=== PATIENT | female | born 1975 | race Caucasian/White ===

== ENCOUNTER 2016-10-03 16:32 | Outpatient (CLI) | payer OTHER ==
[2016-10-03] MEDS ORDERED: AMOX/CLAV 875 MG/125 MG TABLET PO SCH (18:00)
[2016-10-03] MEDS ORDERED: TERBUTALINE 1 MG/ML VIAL SUBQ ONE (18:14)
[2016-10-03] MEDS ORDERED: ONDANSETRON 4 MG/2 ML VIAL IVP PRN (18:21)
[2016-10-03] MEDS: TERBUTALINE 1 MG/ML VIAL SUBQ ONE ×2 (18:44→19:11)
[2016-10-03] MEDS ORDERED: LACTATED RINGERS 1,000 ML IV SCH (19:00)
[2016-10-03] MEDS ORDERED: AMPICILLIN 2 GM in SODIUM CHLORIDE 0.9% MINIBAG 100 ML IV SCH (20:10)
== END 2016-10-03 21:35 | disposition home or self-care (01) ==
DX: O98.813 Other maternal infectious and parasitic diseases complicating pregnancy, third trimester (principal); J06.9 Acute upper respiratory infection, unspecified; O26.893 Other specified pregnancy related conditions, third trimester; R11.0 Nausea; Z3A.39 39 weeks gestation of pregnancy
CPT/HCPCS: 81003; 96372; 96374; 99213; J7120

== ENCOUNTER 2016-10-05 15:02 | Inpatient (IN) | payer OTHER ==
[2016-10-05] MEDS ORDERED: ONDANSETRON 4 MG/2 ML VIAL IVP PRN ×2 (15:13→16:22)
[2016-10-05] MEDS ORDERED: fentaNYL 100 MCG/2 ML VIAL IVP PRN (15:13)
[2016-10-05] MEDS: LACTATED RINGERS 1,000 ML IV SCH ×2 (15:25→16:00)
[2016-10-05] MEDS ORDERED: fentaNYL 100 MCG/2 ML VIAL ONE (15:38)
[2016-10-05] MEDS ORDERED: SUFENTA/BUPIV 0.4 MCG/0.0625% 150 ML EP ONE (15:39)
[2016-10-05] MEDS ORDERED: SUFENTA/BUPIV 0.4 MCG/0.0625% EPIDURAL 150 ML EP PRN (16:22)
[2016-10-05] MEDS ORDERED: NALBUPHINE 20 MG/ML AMP IVP PRN (16:22)
[2016-10-05] MEDS ORDERED: LACTATED RINGERS 500 ML IV ONE (16:22)
[2016-10-05] MEDS ORDERED: METOCLOPRAMIDE 10 MG/2 ML VIAL IVP PRN (16:22)
[2016-10-05] MEDS ORDERED: NALOXONE 0.4 MG/ML VIAL IVP PRN (16:22)
[2016-10-05] MEDS ORDERED: diphenhydrAMINE INJ 50 MG/ML VIAL IVP PRN (16:22)
[2016-10-05] MEDS ORDERED: ePHEDrine 50 MG/ML AMP IVP PRN (16:22)
[2016-10-05] MEDS ORDERED: fentaNYL 100 MCG/2 ML VIAL IVP ONE (16:30)
[2016-10-05] MEDS ORDERED: ROPIVACAINE 0.2% PF 10 ML VIAL EPI ONE (16:30)
[2016-10-05] MEDS ORDERED: OXYTOCIN/LACTATED RINGERS 250 ML IV ONE (16:30)
[2016-10-05] MEDS ORDERED: LIDOCAINE 1% 50 ML MDV ONE (16:35)
[2016-10-05] MEDS ORDERED: ACETAMINOPHEN 325 MG TABLET PO PRN (17:12)
[2016-10-05] MEDS ORDERED: HYDROCORTISONE/PRAMOXINE 10 GM PR PRN (17:12)
[2016-10-05] MEDS ORDERED: WITCH HAZEL/GLYCERIN 1 EACH MED..PAD TOP PRN (17:12)
[2016-10-05] MEDS: IBUPROFEN 800 MG TABLET PO SCH ×2 (17:44→23:43)
[2016-10-05] MEDS ORDERED: LACTATED RINGERS 1,000 ML IV SCH (18:00)
[2016-10-05] MEDS ORDERED: BUDESONIDE 0.5 MG/2 ML NEB INH SCH (19:00)
[2016-10-05] MEDS: DOCUSATE SODIUM 100 MG CAPSULE PO SCH (21:12)
[2016-10-06] MEDS: FORMOTEROL FUMARATE NEB 20 MCG/2 ML INH SCH ×3 (00:48→17:52)
[2016-10-06] MEDS: IBUPROFEN 800 MG TABLET PO SCH ×3 (06:05→19:37)
[2016-10-06] MEDS: DOCUSATE SODIUM 100 MG CAPSULE PO SCH ×2 (08:45→20:57)
[2016-10-06] MEDS: oxyCODONE 5 MG TABLET PO PRN ×3 (13:51→21:56)
[2016-10-06] MEDS ORDERED: ACETAMINOPHEN 325 MG TABLET PO SCH (14:00)
[2016-10-06] MEDS ORDERED: ACETAMINOPHEN 500 MG TABLET PO PRN (14:17)
[2016-10-06] MEDS: SIMETHICONE CHEW 80 MG TABLET PO SCH ×2 (14:24→14:25)
[2016-10-06] MEDS ORDERED: BUDESONIDE 0.5 MG/2 ML NEB INH SCH (14:39)
[2016-10-06] MEDS: BUDESONIDE 0.5 MG/2 ML NEB INH SCH ×2 (17:52→17:54)
[2016-10-06] MEDS: ACETAMINOPHEN 500 MG TABLET PO SCH (18:15)
[2016-10-07] MEDS: IBUPROFEN 800 MG TABLET PO SCH ×2 (04:39→10:30)
[2016-10-07] MEDS: ACETAMINOPHEN 500 MG TABLET PO SCH (04:40)
[2016-10-07] MEDS: oxyCODONE 5 MG TABLET PO PRN ×3 (05:44→14:07)
[2016-10-07] MEDS: DOCUSATE SODIUM 100 MG CAPSULE PO SCH (10:29)
[2016-10-07] MEDS: FORMOTEROL FUMARATE NEB 20 MCG/2 ML INH SCH (10:45)
[2016-10-07] MEDS: BUDESONIDE 0.5 MG/2 ML NEB INH SCH (10:45)
== END 2016-10-07 14:15 | disposition home or self-care (01) | DRG 775 ==
PROC: 0KQM0ZZ Repair Perineum Muscle, Open Approach (ICD-10-PCS; principal; 2016-10-05)
PROC: 10E0XZZ Delivery of Products of Conception, External Approach (ICD-10-PCS; principal; 2016-10-05)
DX: O99.214 Obesity complicating childbirth (principal); Z68.39 Body mass index [BMI] 39.0-39.9, adult; O99.52 Diseases of the respiratory system complicating childbirth; J45.909 Unspecified asthma, uncomplicated; O70.1 Second degree perineal laceration during delivery; Z3A.39 39 weeks gestation of pregnancy; Z37.0 Single live birth

== ENCOUNTER 2016-10-26 15:28 | Outpatient (CLI) | payer OTHER | END 2016-10-26 15:29 | disposition home or self-care (01) | DX: O10.43 Pre-existing secondary hypertension complicating the puerperium (principal) ==

== ENCOUNTER 2017-12-03 17:00 | Outpatient (CLI) | payer MEDICAID, OTHER ==
[2017-12-03 12:48] LABS: HGB - HEMOGLOBIN 12.9 g/dL (12.0-16.0); MEAN CORPUSCULAR HEMOGLOBIN 28.1 pg (27.0-31.0); MEAN CORPUSCULAR HGB CONC 33.4 g/dL (32.0-36.0); MEAN CORPUSCULAR VOLUME 83.9 fL (81.0-99.0); MEAN PLATELET VOLUME 8.5 fL (7.9-10.8); RED BLOOD COUNT 4.6 10^6/uL (4.20-5.40); RED CELL DISTRIBUTION WIDTH 14.6 % (12.0-15.0); WHITE BLOOD COUNT 6.9 x10^3/uL (4.8-10.8)
[2017-12-03 13:17] LABS: THYROID STIMULATING HORMONE 1.6 uIU/mL (0.34-5.60)
[2017-12-03 13:19] LABS: FREE T4 (FREE THYROXINE) 0.86 ng/dL (0.58-1.64)
== END 2017-12-03 17:01 | disposition home or self-care (01) ==
LOC: LAB.N 17:00
PROVIDERS: ATTEND Obstetrics & Gynecology
DX: R53.81 Other malaise (principal)
CPT/HCPCS: 36415; 84439; 84443; 84481

== ENCOUNTER 2017-12-10 15:25 | Outpatient (CLI) | payer OTHER, MEDICAID ==
--- NOTE | 2017-12-11 17:42 | Mammography Report ---
DIGITAL BILATERAL SCREENING MAMMOGRAM: 12/10/2017 COMPARISON STUDY: Mammogram 11/04/2007. INDICATION: Screening exam. TECHNIQUE: Bilateral CC and MLO breast views. FINDINGS: There are scattered fibroglandular densities. No dominant mass, architectural distortion or concerning cluster of microcalcification is seen. IMPRESSION: 1. BI-RADS CATEGORY 1, NEGATIVE. 2. RECOMMEND ANNUAL SCREENING MAMMOGRAM. STANDARD QUALIFYING STATEMENTS 1. This examination was reviewed with the aid of Computed-Aided Detection (CAD) . 2. A negative or benign imaging report should not delay biopsy if clinically suspicious findings are present. Consider surgical consultation if warranted. More than 5 % of cancers are not identified by imaging. 3. Dense breasts may obscure an underlying neoplasm. TD: 12/11/2017 17:41 EDGAR
== END 2017-12-10 15:26 | disposition home or self-care (01) ==
LOC: DI.N 15:25
PROVIDERS: ATTEND Obstetrics & Gynecology
DX: Z12.31 Encounter for screening mammogram for malignant neoplasm of breast (principal)
CPT/HCPCS: 77067

== ENCOUNTER 2017-12-10 18:58 | Outpatient (CLI) | payer OTHER, MEDICAID ==
--- NOTE | 2017-12-11 11:49 | Ultrasound Report ---
PELVIS ULTRASOUND: 12/10/2017. COMPARISON: No comparison. INDICATION: Pelvic pain. TECHNIQUE: Sonographic evaluation of the pelvis was performed using transabdominal and endovaginal obtained. FINDINGS: The uterus appears normal without evidence of mass. The endometrial stripe measures 6 mm. The uterus measures 9.5 x 6.2 x 3.7 cm. Volume 115 mL. Intrauterine device is in place. Nabothian cyst is noted. The cervix appears otherwise unremarkable. Right ovary: 3.0 x 2.1 x 1.8 cm. Volume 6 mL. Left ovary: 2.2 x 2.1 x 2.0 cm. Volume 5 mL. The ovaries have a grossly normal appearance with normal appearing blood flow. There is a small amount of simple appearing free fluid in the cul-de-sac. IMPRESSION: 1. THERE ARE NO SONOGRAPHIC FINDINGS TO SUGGEST A CAUSE OF PELVIC PAIN. 2. INTRAUTERINE DEVICE APPEARS APPROPRIATELY PLACED. TD: 12/11/2017 11:48 EDGAR
== END 2017-12-10 18:59 | disposition home or self-care (01) ==
LOC: DI 18:58
PROVIDERS: ATTEND Obstetrics & Gynecology
DX: R10.2 Pelvic and perineal pain (principal); Z97.5 Presence of (intrauterine) contraceptive device
CPT/HCPCS: 76830; 76856

== ENCOUNTER 2018-02-27 06:55 | Day surgery (SDC) | payer OTHER, MEDICAID ==
--- NOTE | 2018-02-26 12:14 | PREOP HISTORY & PHYSICAL ---
DATE OF SERVICE: 02/27/2018 Physician: Rasheeda Larose DO ANTICIPATED DATE FOR PROCEDURE: 02/27/2018. IDENTIFICATION: This is a 42-year-old G3, P-3-0-0-3. HISTORY OF PRESENT ILLNESS: The patient presents today for scheduled preoperative visit. The patient has been having urinary incontinence. She has been noticing for some time now loss of urine when she coughs, laughs or sneezes. More recently, the patient has been having loss of urine when she tries to step over objects. She has to bring a change of clothes where she goes and constantly wears sanitary pads. She actually has a rash on her perineum when she uses the sanitary pads too much. She gets up 3-4 times a night to empty her bladder. On occasion, she has to return to empty her bladder , but no urine comes out. She denies any hematuria or dysuria. She does not have to shift in order to start her urinary stream. On examination, the patient has multiparous introitus and a loss of urine was seen with coughing. I explained to the patient my recommendation to proceed with a transobturator taping in order to stop her hypermobility of the urethral neck. In addition, a cystoscopy would be indicated to ensure that there was no trauma to the bladder. I discussed with the patient, therefore, to proceed to a transobturator taping with cystoscopy. I discussed with the patient the risks, benefits, alternatives and indications, expectations of a transobturator taping with cystoscopy. Included in the discussion of the risks were hemorrhage, infection and an inadvertent laceration or ligation of the adjacent bladder and rectum. There is also a chance of difficulty of the vagina not healing properly over the transobturator taping. In order to maximize healing, I recommended the patient's asthma to be well controlled and her immune system optimized. After the patient's questions were answered to her satisfaction, she verbalized her desire to proceed with surgery. Consent forms have been signed. Currently, the patient is doing well. She denies any nausea, vomiting, fever, chills, diarrhea, constipation. She states that her asthma is well controlled at this point in time. PAST MEDICAL HISTORY 1. Asthma. 2. Hypertension. 3. Headaches. 4. Depression. PAST SURGICAL HISTORY 1. Hernia repair at age 7 in her right lower quadrant. It is unclear if it is inguinal versus femoral repair. 2. 2011, laparoscopic cholecystectomy . ALLERGIES: NO KNOWN DRUG ALLERGIES. MEDICATIONS 1. Advair 500/50. 2. Citalopram 20 mg daily. 3. Mirena IUD placed 11/27/2016. 4. Zyrtec uhmr-[id number]. SOCIAL HISTORY: She denied any tobacco or illicit drug use. She does consume alcohol on a social basis. 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 She is to Stephen and they have children, Kalpesh, Marguerite, and Yessenia. PAST OBSTETRICAL HISTORY: Three term spontaneous vaginal deliveries. PAST GYNECOLOGIC HISTORY: She denies any abnormal Paps or sexually transmitted diseases. She had a Mirena IUD placed on 11/27/2016. LABORATORY DATA: Most recent pelvic ultrasound for pelvic pain shows on 2017 uterus measuring 9.5 x 6.2 x 3.7 cm. Endometrial stripe measures 6 mm. IUD is in place. Right ovary is normal and measures 3.0 x 2.1 x 1.8 cm. Left ovary 2.2 x 2.1 x 2.0 cm. A small simple appearing free fluid. ASSESSMENT 1. A 42-year-old G3, P-3-0-0-3. 2. Genuine stress incontinence. 3. Well-controlled asthma. 4. Well-controlled hypertension. PLAN 1. Consents have been signed today. We will proceed to a scheduled transobturator taping with cystoscopy on 02/27/2018. 2. The patient is encouraged to take ibuprofen and Tylenol for postoperative pain. She has been given a prescription for Vicodin for any breakthrough pain that she may have. In addition, the patient is to get Levaquin for prophylaxis of postoperative cellulitis. 3. The patient is to see me at [facility] [place] in 2 weeks for routine postoperative visit. TD: 02/26/2018 11:58 MTDD
[2018-02-27] MEDS ORDERED: LIDOCAINE MPF 1%-EPI 1:200000 30 ML VIAL ONE (07:30)
[2018-02-27] MEDS ORDERED: LACTATED RINGERS 1,000 ML IV ONE (07:32)
[2018-02-27] MEDS ORDERED: GENTAMICIN 80 MG/2 ML VIAL ONE (07:34)
[2018-02-27 07:52] LABS: HCG UR QUAL NEGATIVE
[2018-02-27] MEDS ORDERED: ceFAZolin 2 GM/50 ML 2 GM/50 ML BAG IV ONE (08:26)
[2018-02-27] MEDS ORDERED: MIDAZOLAM 2 MG/2 ML VIAL IVP ONE (08:40)
[2018-02-27] MEDS ORDERED: PROPOFOL 200 MG/20 ML VIAL IVP ONE (08:40)
[2018-02-27] MEDS ORDERED: DEXAMETHASONE 4 MG/ML VIAL IVP ONE (08:40)
[2018-02-27] MEDS ORDERED: fentaNYL 100 MCG/2 ML VIAL IVP ONE (08:40)
[2018-02-27] MEDS ORDERED: ONDANSETRON 4 MG/2 ML VIAL IVP ONE (08:40)
[2018-02-27] MEDS ORDERED: LIDOCAINE-MPF 2% 5 ML VIAL IM ONE (08:40)
[2018-02-27] MEDS ORDERED: KETOROLAC 30 MG/ML VIAL IVP ONE (08:40)
[2018-02-27] MEDS ORDERED: LIDOCAINE MPF 1%-EPI 1:200000 30 ML VIAL SUBQ ONE (08:42)
--- NOTE | 2018-02-27 09:29 | OPERATIVE REPORT ---
Operative Report - Other Other Information/Narrative: Date of Operation: 02/27/2018 Surgeon: Rasheeda Larose DO FACOG General Passenger Agent: None Implementation Technician: Jt Gonzales CRNA Anesthesia: LMA Pre-Op Dx: 1. 42 yo 2. Genuine stress incontinence Post-Op Dx: 1. 42 yo 2. Genuine stress incontinence Procedure: 1. Transobturator taping ([employer]illon, catalog number [id number], batch code [id number], Use-by date 2020-07-31) 2. Cystoscopy Findings: 1. Normal vulva 2. Intact bladder Specimens: None Drains: None EBL: 30 mL Complications: None OP Note Dictation #: [id number]
[2018-02-27] MEDS ORDERED: HYDROcod/ACETAM 5/325 MG TABLET ONE (10:27)
[2018-02-27 10:52] VITALS: BP 142/79
--- NOTE | 2018-02-27 12:10 | OPERATIVE REPORT ---
DATE OF OPERATION: 02/27/2018 SURGEON: Rasheeda Larose DO, FACOG. RN PALLIATIVE: None SEED TESTER: Jt Gonzales CRNA. ANESTHESIA: LMA. PREOPERATIVE DIAGNOSES 1. A 42-year-old G3, P-3-0-0-3. 2. Genuine stress incontinence. POSTOPERATIVE DIAGNOSES 1. A 42-year-old G3, P-3-0-0-3 2. Genuine stress incontinence. PROCEDURES PERFORMED 1. Transobturator taping via Coloplast by [employer], catalog number [id number], batch code [id number], used by date 2020-07-31. 2. Cystoscopy. FINDINGS 1. Normal vulva. 2. Intact bladder at the time of cystoscopy. SPECIMENS: None. DRAINS: None. ESTIMATED BLOOD LOSS: 30 mL COMPLICATIONS: None. HISTORY OF PRESENT ILLNESS: This a patient of [facility], who has had a history of genuine stress incontinence. This was visualized at a recent office visit. Given the diagnosis of genuine stress incontinence, I recommended the patient to undergo transobturator taping. I discussed with the patient the risks, benefits, alternatives, and indications, expectations of the transobturator taping as well as cystoscopy. Including in our discussion were the risks of hemorrhage, infection, damage to surrounding organs. With respect to the damage to surrounding organs, this may include, but not limited to an inadvertent laceration, cauterization or ligation of the adjacent bladder and the rectum. Also, there is a chance of mesh erosion. After the patient's questions were answered to her satisfaction, she verbalized her desire to proceed with surgery. Consent forms have been signed. OPERATION IN DETAIL: The patient was identified and consented, taken to the operating room where IV access was already in place. She was then given sequential compression devices which were placed on the lower extremities and turned on. Timeout was then given satisfactory LMA anesthesia as were Jt Gonzales. The patient was then prepped and draped in normal sterile fashion in the lithotomy position using Yellofin stirrups. Her bladder was drained with in andout red Hodgson catheter. Two grams of Ancef were given to the patient preoperatively. A timeout was performed to correctly identify the patient, site of the procedure, and the procedure itself. The 2 inguinal gluteal incisions were first identified in the folds just lateral to the clitoris. Two stab incisions were made after injecting 1% lidocaine with epinephrine. In addition, the vagina was given the same anesthesia approximately 2 cm inferior to the urethra in the midline. An approximately 2 cm incision was made 2 cm inferior to the urethra. The amorphous collagenous tissue inferior to the vagina was then bluntly dissected from the vagina and tunnel was made towards the incisions that were made in the inguinal gluteal folds. Next, the transobturator tape that was soaked in a mixture of gentamicin was placed through the respective incisions in the inguinal gluteal folds and then threaded to the vaginal incision. This was done bilaterally. The tape was then given tension so that it was up against heavy suture scissors. A set of heavy suture scissors was placed between the urethra and the obturator tape. The tape was then tightened, but loose, so that urinary obstruction would not occur. Cystoscopy was then performed with the 30-degree scope. A saline solution was the distending medium. Inspection of the bladder revealed that it was completely intact and without any hemorrhage. Photos were taken. Cystoscopy was then completed and a distending fluid was then allowed to drain from the bladder. The vaginal incision was then closed using a stitch of 0 Vicryl in a running locked fashion. Hemostasis was noted in the vagina. The tape that was in the inguinal gluteal folds were trimmed to the level of the skin. These incisions were then closed with 4-0 Monocryl in subcuticular fashion. Finally, Dermabond was placed on top of the 2 incisions. The patient tolerated the procedure well and was taken back to recovery room in stable condition. She will be discharged to home today after postoperative criteria are met. The patient is to see me at [facility] in 2 weeks for routine postoperative visit. The patient has been given strict pelvic rest instructions and will take a prescription of Levaquin for prevention of postoperative cellulitis. TD: 02/27/2018 09:45 EDGAR
== END 2018-02-27 06:56 | disposition home or self-care (01) ==
LOC: SDS 06:55
PROVIDERS: ATTEND Obstetrics & Gynecology
PROC: 0TSD0ZZ Reposition Urethra, Open Approach (ICD-10-PCS; principal; 2018-02-27 08:15)
PROC: 0TJB8ZZ Inspection of Bladder, Via Natural or Artificial Opening Endoscopic (ICD-10-PCS; 2018-02-27 08:15)
DX: N39.3 Stress incontinence (female) (male) (principal); I10 Essential (primary) hypertension; J45.909 Unspecified asthma, uncomplicated; F32.9 Major depressive disorder, single episode, unspecified
CPT/HCPCS: 57288; 81025; A9270; C1771; J0690; J1580; J7120

== ENCOUNTER 2018-05-06 11:07 | Emergency (ER) | payer OTHER, MEDICAID ==
--- NOTE | 2018-05-06 13:32 | ED Physician Documentation ---
PD HPI UPPER EXT INJURY - Stated complaint Stated Complaint: R ELBOW PAIN/NUMBNESS - Chief complaint Chief Complaint: Ext Problem - History obtained from History obtained from: Patient - History of Present Illness Location: Right, Elbow Type of injury: Other (slow onset and worsening of right elbow pain, now hurts with most motions and pain is down to forearm. Has some numbness at times in little finger. No noted abrupt injury. She is right handed. Has 1 year old at home and does repetitive work with hands as well.). No: Fall, Blunt / blow Timing - onset: How many weeks ago (3 weeks or so of elbow hurting, initially with just supination movement, now worse the past week.) Timing - duration: Weeks Timing - details: Gradual onset, Still present Worsened by: Moving, Palpating Associated symptoms: Weakness (she feels she can't hold heavy objects due to the pain.), Numbness (little finger at times). 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 : None HEENT: None Psych: Depression, Anxiety Musculoskeletal: Osteoarthritis, Chronic back pain Derm: None - Past Surgical History Past Surgical History: Yes General: Cholecystectomy, Other - Present Medications Home Medications: Ambulatory Orders Medication Instructions Recorded Confirmed Fluticasone/Salmeterol 500/50 1 puffs INH BID 03/05/13 02/27/18 [Advair 500 Mcg/50 Mcg] Citalopram Hydrobromide [Celexa] 20 mg PO DAILY 02/27/18 02/27/18 Dexamethasone [Decadron] 4 mg PO DAILY #5 tablet 05/06/18 HYDROcod/ACETAM 5/325 [Lafayette 5/325] 1 tab PO Q6H PRN #15 tablet 05/06/18 Methocarbamol [Robaxin] 500 mg PO Q6H PRN #20 tablet 05/06/18 - Allergies Allergies/Adverse Reactions: Allergies Allergy/AdvReac Type Severity Reaction Status Date / Time No Known Drug Allergies Allergy Verified 05/06/18 11:11 - Social History Does the pt smoke?: No Smoking Status: Never smoker Does the pt drink ETOH?: Yes Does the pt have substance abuse?: No - Immunizations Immunizations are current?: Yes - POLST Patient has POLST: No PD ED PE NORMAL - Vitals Vital signs reviewed: Yes - General General: Alert and oriented X 3, No acute distress, Well developed/nourished - Derm Derm: Normal color, Warm and dry, No rash - Extremities Extremities: Other (right elbow with tenderness mostly over lateral condyle. Some tender at medial condyle and posterior elbow as well. Some tender at cubital tunnel and causes numbness in little finger. No redness nor sores. No effusion of the elbow. ROM hurts in most movements of the elbow, but supination against resistance the worst. 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 Supination hurts the most. Some less sensation of little finger but good ROM. ), Normal speech Results - Vitals Vitals: Vital Signs - 24 hr 05/06/18 05/06/18 11:10 14:19 Temperature 36.5 C 36.6 C Heart Rate 100 71 Respiratory 20 18 Rate Blood Pressure 149/108 H 144/97 H O2 Saturation 100 100 Oxygen O2 Source Room air PD MEDICAL DECISION MAKING - ED course Complexity details: considered differential (exam and symptoms c/w epicondylitis ), d/w patient - Sepsis Event Vital Signs: Vital Signs - 24 hr 05/06/18 05/06/18 11:10 14:19 Temperature 36.5 C 36.6 C Heart Rate 100 71 Respiratory 20 18 Rate Blood Pressure 149/108 H 144/97 H O2 Saturation 100 100 Oxygen O2 Source Room air Departure - Departure Disposition: 01 Home, Self Care Clinical Impression: Epicondylitis, lateral (tennis elbow) Qualifiers: Laterality: right Qualified Code(s): M77.11 - Lateral epicondylitis, right elbow Condition: Stable Record reviewed to determine appropriate education?: Yes Instructions: ED Epicondylitis Lateral Elbow Follow-Up: Tamika Geller MD [Provider Admit Priv/Credential] - Prescriptions: Dexamethasone [Decadron] 4 mg PO DAILY #5 tablet HYDROcod/ACETAM 5/325 [Lafayette 5/325] 1 tab PO Q6H PRN #15 tablet PRN Reason: Pain Methocarbamol [Robaxin] 500 mg PO Q6H PRN #20 tablet PRN Reason: Spasms Comments: Use a sling periodically to reduce motion and tension at the elbow 2 rest the tendons. 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 This helps quite a bit. Continue the ibuprofen twice daily. Add Decadron daily for 5 days. Add Robaxin muscle relaxant if needed for spasms. Add Tylenol or hydrocodone if needed for pain. Recheck with orthopedics if not improving over the next several days to week. Discharge Date/Time: 05/06/18 14:19
[2018-05-06] MEDS ORDERED: DEXAMETHASONE 10 MG/ML VIAL PO STA (13:49)
[2018-05-06] MEDS ORDERED: HYDROcod/ACETAM 5/325 MG TABLET PO STA (13:49)
[2018-05-06] MEDS ORDERED: CHERRY SYRUP 10 ML UDC PO ONE (14:06)
[2018-05-06 14:20] VITALS: BP 144/97
== END 2018-05-06 14:19 | disposition home or self-care (01) ==
LOC: ED 11:07
DX: M77.11 Lateral epicondylitis, right elbow (principal); I10 Essential (primary) hypertension
CPT/HCPCS: 99283; A9270